=== PATIENT | female | born 1985 | race Caucasian/White ===

== ENCOUNTER → 2020-01-28 14:18 | Outpatient (CLI) | payer OTHER, SELFPAY ==
[2020-01-28 17:48] LABS: Add Manual Diff / Slide Review NO; Basophils Absolute Auto 0 /uL (0-100); Basophils Percent Auto 0.4 % (0-2); Eosinophils Absolute Auto 100 /uL (0-450); Eosinophils Percent Auto 1.5 % (2-4); Hematocrit 32.1 % (36-46); Hemoglobin 11.4 g/dL (12.0-16.0); Lymphocytes Absolute Auto 1800 /uL (1100-4500); Mean Corpuscular HGB Conc 35.5 % (30-36); Mean Corpuscular Hemoglobin 31.7 PG (26-34); Mean Corpuscular Volume 89.2 fL (80-100); Monocytes Absolute Auto 500 /uL (0-900); Monocytes Percent Auto 5.1 % (3-14); Neutrophils Absolute Auto 6700 /uL (1500-7000); Platelet Count 208 X10^3/uL (150-400); White Blood Cell Count 9.2 X10^3/uL (4.5-11.0)
[2020-01-28 18:31] LABS: Appearance Urine UA CLEAR; Bilirubin Urine UA NEGATIVE (NEGATIVE); Color Urine UA YELLOW; Glucose Urine UA NEGATIVE (Negative); Ketones Urine UA TRACE (NEGATIVE); Leukocyte Esterase Urine UA NEGATIVE (NEGATIVE); Nitrite Urine UA NEGATIVE (Negative); Occult Blood Urine UA NEGATIVE (Negative); Protein Urine UA NEGATIVE (Negative); Specific Gravity Urine UA >=1.030 (1.000-1.035); Urobilinogen Urine UA 0.2 E.U./dL (0.2)
[2020-01-28 19:29] LABS: HIV 1 & 2 Ab/Ag 4th Gen Combo NEGATIVE (NEGATIVE); Hep C Virus Ab w/Reflex Quant NEGATIVE s/c (NEGATIVE); Hepatitis B Surface Antigen NEGATIVE s/c (NEGATIVE); Rubella Antibody IgG 11.5 IU/mL (>15)
[2020-01-29 05:56] LABS: Varicella IgG Antibody 2167 index (Immune >165)
[2020-01-30 06:08] LABS: RPR Screen Non Reactive (Non Reactive)
== END ==
PROVIDERS: PCP Registered Nurse Diabetes Educator; Referring Provider Obstetrics & Gynecology; Visit Provider Obstetrics & Gynecology
DX: Z34.81 Encounter for supervision of other normal pregnancy, first trimester (principal); Z36.0 Encounter for antenatal screening for chromosomal anomalies; Z13.79 Encounter for other screening for genetic and chromosomal anomalies
CPT/HCPCS: 36415; 80055; 81003; 86787; 86803; 86850; 86900; 86901; 87389

== ENCOUNTER → 2020-03-12 16:06 | Outpatient (CLI) | payer OTHER, SELFPAY ==
[2020-03-12 21:05] LABS: Urine N gonorrhoeae NOT DETECTED
[2020-03-12 21:16] LABS: Urine Chlamydia NOT DETECTED
[2020-03-14 20:07] LABS: AFP Value 50.1 ng/mL (.); Gest Age on Col Date 17.4 weeks (.); Insulin Dep Diabetes No (.); OSBR Risk 1IN 5251 (.); Results Report (.); Test Results *Screen Negative* (.)
== END ==
PROVIDERS: PCP Registered Nurse Diabetes Educator; Referring Provider Obstetrics & Gynecology; Visit Provider Obstetrics & Gynecology
DX: Z34.82 Encounter for supervision of other normal pregnancy, second trimester (principal); Z3A.17 17 weeks gestation of pregnancy
CPT/HCPCS: 36415; 82105; 87491; 87591

== ENCOUNTER → 2020-03-30 07:12 | Outpatient (CLI) | payer OTHER, SELFPAY ==
--- NOTE | 2020-03-30 07:15 | DI.US.S_ITS ---
PROCEDURE: US OB >= 14 WEEKS FETUS INDICATIONS: ANATOMY OUTSIDE/PRIOR DATING DATA: Last menstrual period (LMP): 11/11/19. LMP-based estimated date of delivery (SEBASTIAN): 08/17/20 . First dating scan (date and location): 01/16/20, by Dr. Koch . Estimated date of delivery (SEBASTIAN) from first dating scan: 08/16/20 . TECHNIQUE: Real-time scanning was performed of the fetus, with image documentation and biometric measurements. Endovaginal scanning: Not needed. COMPARISON: None. FINDINGS: General: A single living intrauterine gestation is present. Presentation: Transverse head right. Placenta: Placental position is posterior fundal , without previa. Amniotic fluid index: 16.2 cm, normal range is 5-24 cm. heart rate: 144 beats per minute. Maternal cervical canal: 4.1 cm long. Normal lower limit is 2.5 cm. biometrics: Biparietal diameter: 4.9 cm, 20 weeks 6 days Head circumference: 18.3 cm, 20 weeks 4 days Abdominal circumference: 15.8 cm, 20 weeks 6 days Femur length: 3.3 cm, 20 weeks 3 days Estimated gestational age from initial scan: 20 weeks 1 day Composite gestational age from present scan: 20 weeks 5 days Estimated weight and percentile: 370 g, 76th percentile Measurement variability for biometric dating: +/- 7 days from 14 weeks to 15 weeks 6 days gestation, +/- 10 days from 16 weeks to 21 weeks 6 days gestation, +/- 2 weeks from 22 weeks to 27 weeks 6 days gestation, +/- 3 weeks for 28 weeks gestation or later. weight reference: 4500 g or EFW >90/95% is considered macrosomia or large for gestational age. EFW <10% is small for gestational age. EFW 5% or less is considered intra-uterine growth restriction. Anatomic survey: Neuro: Ventricles are non-dilated at less than 10 mm. Cisterna magna is normal at 3-11 mm. Cerebellum is normal in size and morphology. Nuchal skin fold: Normal at less than 6 mm between 14-21 weeks gestational age. Face: Nose and lips, facial profile are normal. Spine: No evidence for spina bifida. Heart: 4-chambered heart is present, with normal ventricular outflow tracts. Diaphragm: Diaphragm is intact. Stomach: Left-sided stomach is present. Kidneys: No hydronephrosis. Normal is less than 5 mm in 2nd trimester, less than 7 mm in 3rd trimester. Cord: 3-vessel cord has orthotopic insertion. Bladder: Normal in size. Extremities: All 4 extremities identified. IMPRESSION: Appropriate interval growth, no anomaly, the delivery DA is projected to be centered on 08/16/20. Current positioning is transverse, head to the maternal right. Dictated by: Uri Costello M.D. on 03/30/2020 at 13:08 Approved by: Uri Costello M.D. on 03/30/2020 at 13:27
== END ==
PROVIDERS: PCP Registered Nurse Diabetes Educator; Referring Provider Obstetrics & Gynecology; Visit Provider Obstetrics & Gynecology
DX: Z34.82 Encounter for supervision of other normal pregnancy, second trimester (principal); Z3A.20 20 weeks gestation of pregnancy
CPT/HCPCS: 76811

== ENCOUNTER → 2020-05-13 08:26 | Outpatient (CLI) | payer OTHER, SELFPAY ==
[2020-05-13 09:59] LABS: Hematocrit 30.2 % (36-46); Hemoglobin 10.5 g/dL (12.0-16.0)
[2020-05-13 10:09] LABS: GTT (PREG) 1 Hour PP 50gm Dose 104 mg/dL (76-139)
== END ==
PROVIDERS: PCP Registered Nurse Diabetes Educator; Referring Provider Obstetrics & Gynecology; Visit Provider Obstetrics & Gynecology
DX: Z34.82 Encounter for supervision of other normal pregnancy, second trimester (principal); Z3A.26 26 weeks gestation of pregnancy
CPT/HCPCS: 36415; 82950; 85014; 85018

== ENCOUNTER → 2020-07-13 11:27 | Outpatient (CLI) | payer OTHER, SELFPAY ==
[2020-07-14 10:11] LABS: Strep Grp B PCR NEG for Grp B Strep
== END ==
PROVIDERS: PCP Registered Nurse Diabetes Educator; Visit Provider Obstetrics & Gynecology
DX: Z34.83 Encounter for supervision of other normal pregnancy, third trimester (principal); Z3A.35 35 weeks gestation of pregnancy
CPT/HCPCS: 87653

== ENCOUNTER → 2020-08-04 11:09 | Outpatient (CLI) | payer OTHER, SELFPAY ==
[2020-08-05 09:05] LABS: Bile Acids 8.2 umol/L (0.0-10.0)
[2020-08-09 11:15] LABS: COVID19 -Nasal RAPID Negative (Negative)
== END ==
PROVIDERS: PCP Registered Nurse Diabetes Educator; Referring Provider Obstetrics & Gynecology; Visit Provider Obstetrics & Gynecology
DX: L29.9 Pruritus, unspecified (principal); Z34.90 Encounter for supervision of normal pregnancy, unspecified, unspecified trimester
CPT/HCPCS: 36415; 82239; 87635

== ENCOUNTER 2020-08-10 07:15 | Inpatient (IN) | payer OTHER, SELFPAY ==
[2020-08-10] MEDS: LACTATED RINGERS 1,000 ML 100 ML IV ×2 (08:25→13:06)
[2020-08-10] MEDS: OXYTOCIN PREMIX 30 UNIT/500 ML PLAST..BAG IV (08:39)
[2020-08-10 08:58] LABS: Add Manual Diff / Slide Review NO; Basophils Absolute Auto 0 /uL (0-100); Basophils Percent Auto 0.4 % (0-2); Eosinophils Absolute Auto 100 /uL (0-450); Eosinophils Percent Auto 0.7 % (2-4); Hematocrit 33.7 % (36-46); Hemoglobin 11.8 g/dL (12.0-16.0); Lymphocytes Absolute Auto 1600 /uL (1100-4500); Lymphocytes Percent Auto 12.8 % (25-40); Mean Corpuscular HGB Conc 35.1 % (30-36); Mean Corpuscular Hemoglobin 33.1 PG (26-34); Mean Corpuscular Volume 94.2 fL (80-100); Monocytes Absolute Auto 800 /uL (0-900); Monocytes Percent Auto 6.5 % (3-14); Neutrophils Absolute Auto 9900 /uL (1500-7000); Neutrophils Percent Auto 79.6 % (50-75); Platelet Count 183 X10^3/uL (150-400); Red Blood Cell Count 3.58 X10^6/uL (4.0-5.2); Red Cell Distribution Width 12.8 % (11.6-14.8); White Blood Cell Count 12.4 X10^3/uL (4.5-11.0)
[2020-08-10 10:00] VITALS: BP 118/79
[2020-08-10] MEDS: FENT 2MCG/ML BUPIV 0.125% EPI 200 MCG/100 ML PLAST..BAG 10 MCG EPIDURAL (13:40)
--- NOTE | 2020-08-10 20:21 | PM.OBHP.1 ---
OB HPI Date/Time Date of admission: 08/10/20 Date Patient Seen: 08/10/20 Time Patient Seen: 07:50 History of Present Condition Chief complaint: LABOR OBS/INDUCTION : 2 Para: 1 Estimated Date of Delivery: 08/17/20 Estimated Gestational Age (weeks): 39 Narrative: Diana Womack is a 34 year old female who presented for induction of labor at 39 weeks gestation Indications Indication for induction OB: maternal discomfort History of Present care: initiated at week # (9), number of visits (11) and pounds weight gain (34) Dating criteria: LMP confirmed by 1st trimester US Ultrasounds: normal 1st trimester US and normal mid trimester US Obstetrical complications: none Medical complications: none Preadmission Labs Blood type: O (+) positive -: Antibody screen: negative, GBS status: negative, HBsAG: negative, HIV: negative and RPR/VDLR: negative -: Chlamydia screen: not detected and Gonorrhea screen: not detected -: Rubella: not immune and Varicella: immune HCT: 33.7 HCAB: negative PAP: Normal Cell-free DNA: Normal female, AFP normal 1 hr GTT: 104 Prior (ies) History: 1 in [facility] Evaluation Evaluation Baseline heart rate: 135 Variability: Moderate (11-25) monitor accelerations: Present Monitor Decelerations: Absent Status: Category l Cervical dilation (cm): 3 Cervical effacement (%): 85 station: -1 Laboratory results: Laboratory Tests 08/10/20 08/10/20 08:25 08:25 WBC 12.4 H RBC 3.58 L Hgb 11.8 L Hct 33.7 L MCV 94.2 MCH 33.1 MCHC 35.1 RDW 12.8 Plt Count 183 Neut % (Auto) 79.6 H Lymph % (Auto) 12.8 L [place] % (Auto) 6.5 Eos % (Auto) 0.7 L Baso % (Auto) 0.4 Neut # (Auto) 9900 H Lymph # (Auto) 1600 [place] # (Auto) 800 Eos # (Auto) 100 Baso # (Auto) 0 Blood Type O Positive Antibody Screen Negative [facility] Medical History (Updated 08/05/20 @ 09:01 by Josey Koch MD) Anemia affecting first (~2017) Hand fracture, left (~2003) Family History (Updated 01/10/20 @ 13:21 by Pricilla Mcneil RN) Mother No problems noted. Father Hypertension Otosclerosis Grandmother Alzheimer's dementia Grandfather Cancer Grandmother Diabetes mellitus Grandfather Aortic aneurysm Brother No problems noted. Social History marital status: details: Kranthi Zuluaga number of children: 1 household members: spouse and children lives independently: No caregiver/support person: No housing: house pets and animals: No education level: other (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, [employer].) current occupational exposures/hazards: No special karthik needs: No travel history: recent (Returned from living in [facility] September 24, 2019.) leisure activities: exercise (walking, some running, hiking, yoga.) seatbelt use: always Smoking Status: Never smoker second hand exposure: No alcohol intake: former (Pre-, occasional, 1 glass wine 2-3x/week.) substance use type: does not use during the past year weight has: remained stable Meds Home Medications and Allergies Home Medications Medication Instructions Recorded Confirmed Type prenat.vits,alejandra,hyu-qsax-qsfak 1 tab PO DAILY 01/16/20 08/05/20 History Double Electric breast Pump and #1 ea 07/29/20 08/05/20 Rx Supplies Allergies Allergy/AdvReac Type Severity Reaction Status Date / Time No Known Drug Allergies Allergy Verified 08/05/20 08:27 Exam Vital Signs (past 8 hours): Generally: A well-developed, well-nourished female, no acute distress Lungs: Clear to auscultation bilaterally Cardiovascular: Regular rate and rhythm Fundal height: 40 cm Estimated weight: 8 lb Extremities: No edema, 1+ DTRs Objective Labs Result Diagrams: 08/10/20 08:25 Labs: Laboratory Results - last 24 hr 08/10/20 08/10/20 08:25 08:25 WBC 12.4 H RBC 3.58 L Hgb 11.8 L Hct 33.7 L MCV 94.2 MCH 33.1 MCHC 35.1 RDW 12.8 Plt Count 183 Neut % (Auto) 79.6 H Lymph % (Auto) 12.8 L [place] % (Auto) 6.5 Eos % (Auto) 0.7 L Baso % (Auto) 0.4 Neut # (Auto) 9900 H Lymph # (Auto) 1600 [place] # (Auto) 800 Eos # (Auto) 100 Baso # (Auto) 0 Blood Type O Positive Antibody Screen Negative Assessment and Plan Assessment and Plan Assessment and Plan narrative: Assessment: 34-year-old 2 para 1 at 39 weeks gestation for induction of labor Plan: Pitocin per protocol 2 Artificial rupture of membranes when able Epidural as necessary Expected management to spontaneous vaginal delivery Time Spent with Patient Total time spent with greater than 50% in coordination of care (as documented) at patient's floor/unit and/or counseling patient:: less than 15 minutes
--- NOTE | 2020-08-10 20:26 | PM.OBPNLAB ---
Date/Time Date Patient Seen: 08/10/20 Time Patient Seen: 12:30 Pain Control Pain control: tolerating well Pelvic Exam Dilation (cm): 4 Effacement (%): 85 station: -1 Amniotic membrane status: Intact Contractions Monitor mode: External Pitocin rate (mU/min): 12 Contraction frequency (min): 3 Contraction duration (min): 1 Contraction pattern: Regular Contraction intensity: Moderate Status status: Category l Heart Rate Baseline: 135 Monitor Accelerations: Present Monitor Decelerations: Absent Monitor Variability: Moderate Assessment and Plan Assessment: induction ongoing Comments: AROM with copious clear amniotic fluid
--- NOTE | 2020-08-10 20:27 | PM.OBPNLAB ---
Date/Time Date Patient Seen: 08/10/20 Time Patient Seen: 15:15 Pain Control Pain control: epidural Pelvic Exam Dilation (cm): 7 Effacement (%): 100 station: 0 Amniotic membrane status: Ruptured Contractions Monitor mode: External Pitocin rate (mU/min): 9 Contraction frequency (min): 3 Contraction duration (min): 1 Contraction pattern: Regular Contraction intensity: Strong/Firm Status status: Category l Heart Rate Baseline: 130 Monitor Accelerations: Present Monitor Decelerations: Absent Monitor Variability: Moderate Assessment and Plan Assessment: active labor Plan: continuous present management
--- NOTE | 2020-08-10 20:28 | P.PCNOB_ITS ---
Events: Labor Induction Labor & Delivery Delivery date: 08/10/20 Cervical ripening method: none Induction method: per pitocin protocol Delivery augmentation: rupture of membranes Delivery monitor: external FHT and external uterine Route of delivery: Episiotomy description: None L&D Laceration Description: Perineal - 2nd Degree and Vaginal - 2nd Degree Delivery repair: vicryl and chromic Estimated blood loss (mL): 150 Anesthesia Type: Epidural Narrative: Patient complete and pushed for 90 minutes. At 194, a live female delivered spontaneously over an intact perineum in the ROSI presentation. The remainder of the body delivered with a little bit of difficulty. The was placed on mom's abdomen. The cord was double clamped and cut. Cord bloods were obtained. The placenta delivered intact with a three-vessel cord at 1950. Pitocin was given in the IV fluids. The fundus was massaged to firm. The vagina and perineum were inspected and there was a second-degree vaginal/perinea l laceration. This was repaired in the usual fashion using 2 0 chromic and 2 0 Vicryl. Hemostasis was achieved. Apgars 8 at 1 minute and 9 at 5 minutes. Epidural analgesia. . Estimated blood loss 150 cc. Mom and infant stable to recovery. Baby 1: gender: Female Presentation: vertex Position: Left Occiput Anterior Placenta delivery description: Spontaneous Cord Vessel Description: 3 Vessels score (1 min): 8 score (5 min): 9 Plan for aftercare: Routine care
[2020-08-11] MEDS: DERMOPLAST SPRAY 20% 60 ML 1 SPRAY TOP (02:36)
[2020-08-11] MEDS: LANOLIN OINT 7 GM 1 APPLIC TOP (02:37)
[2020-08-11 04:56] LABS: Hematocrit 32.7 % (36-46); Hemoglobin 11.3 g/dL (12.0-16.0)
[2020-08-11] MEDS: ACETAMINOPHEN 325 MG TABLET 650 MG PO ×2 (06:58→13:20)
[2020-08-11] MEDS: IBUPROFEN 600 MG TABLET PO ×2 (06:59→13:20)
[2020-08-11] MEDS: PRENATAL VIT,CALC/IRON/FOLIC 1 TABLET 1 TAB PO (13:20)
[2020-08-11] MEDS: DOCUSATE 100 MG CAPSULE PO (13:21)
[2020-08-11 17:27] VITALS: BP 121/85; PULSE 58; RESP 16; TEMP 36.9
--- NOTE | 2020-08-11 17:27 | P.DS_ITS ---
Discharge Providers Provider Date of admission: 08/10/20 07:15 Discharge Date: 08/11/20 Primary care physician: DENZEL Mccoy Consults: 08/11/20 20:13 Consult to Dental Technician Instructor Routine Comment: Discharge provider: Josey Koch MD Summary Hospital Course Date Patient Seen: 08/11/20 Time Patient Seen: 12:57 Diagnoses: 39 weeks gestation Induction of labor Epidural analgesia Artificial rupture of membranes Spontaneous vaginal delivery Second-degree laceration repair Hospital Course: Patient is a 34-year-old 2 para 2 who presented for induction of labor on August 10, 2020. Pitocin was started. Artificial rupture of membranes was performed and then epidural received for pain management. She progressed to complete dilation and had a spontaneous vaginal delivery without complication. She had a second-degree laceration that was repaired. Her course was unremarkable. is going well. Bleeding is tapering. Pain is well controlled. Peripartum Data Delivery Method: Natural Vaginal Laceration Description: Perineal - 2nd Degree and Vaginal - 2nd Degree Episiotomy description: None Procedures: Pitocin induction of labor Artificial rupture of membranes Epidural analgesia Spontaneous vaginal delivery Second-degree laceration repair complications: none [place] 1: Gender: Female Disposition of : home Status at Discharge Cognitive/behavioral status at discharge: oriented Functional status at discharge: independent ambulation Overall status at discharge: patient is progressing back to baseline Time Spent with Patient Time attestation: Total time spent providing and/or coordinating discharge services: Time spent: Less than 30 minutes Objective Labs Result Diagrams: 08/11/20 04:30 Labs: Laboratory Results - last 24 hr 08/11/20 04:30 Hgb 11.3 L Hct 32.7 L Exam Vital Signs (past 8 hours): Generally: Patient is sitting up in bed, holding , no acute distress Fundus: Firm at U Extremities: No edema, negative Homans Discharge Plan Discharge Plan Patient Disposition: Home Provider Discharge Comment: Call with fever, chills, or bleeding vaginally more than a pad in an hour Ibuprofen 600 mg every 6 hours as needed for cramping Tylenol 650 mg every 6 hours as needed Discharge orders & Medications Prescriptions: Continued prenat.vits,alejandra,[id number] Tablet 1 tab PO DAILY RF: 0 No Action (DME) Double Electric breast Pump and Supplies See Rx Instructions .ROUTE .MEDSUPPLY Qty: 1 RF: 0 Follow up/Referrals: Josey Koch MD [Physician] - 6 Weeks (Your six week follow up appointment with Dr. Koch is scheduled for September 21 @11:30am.) Diet/Activity/Treatments Diet: Regular Activity: Nothing in the vagina Skin/Wound/Dressing Care Report to your healthcare provider any signs of infection, such as:: chills, fever, increased pain and unusual drainage Visit Report/Discharge Packet Instructions: DI for Labor and Delivery, Vaginal Stand Alone Forms: Discharge: Care Discharge Data Primary Care Provider: Shayne Martinez
[2020-08-11] MEDS: MEASLES,MUMPS,RUBELLA VACC/PF 0.5 ML VIAL SUBCUT (18:16)
== END 2020-08-11 19:00 | disposition home or self-care (01) | DRG 807 ==
PROVIDERS: Admitting Provider Obstetrics & Gynecology; PCP Registered Nurse Diabetes Educator; Referring Provider Obstetrics & Gynecology; Visit Provider Obstetrics & Gynecology
DX: O70.1 Second degree perineal laceration during delivery (principal); Z37.0 Single live birth; Z3A.39 39 weeks gestation of pregnancy
CPT/HCPCS: 01967; 36415; 59050; 59400; 85014; 85018; 85025; 86850; 86900; 86901; G0379; J2590

== ENCOUNTER → 2022-03-07 09:53 | Outpatient (CLI) | payer OTHER, SELFPAY ==
[2022-03-07 11:41] LABS: Influenza A - CEPHEID Flu A POSITIVE (NEGATIVE); Influenza B - CEPHEID Flu B NEGATIVE (NEGATIVE); Respiratory Syncytial Virus Negative (Negative)
[2022-03-07 11:44] LABS: COVID-19 CEPHEID 4-PLEX PCR Negative (Negative)
== END ==
PROVIDERS: PCP Registered Nurse Diabetes Educator; Visit Provider Physician Assistant Medical
DX: R05.9 Cough, unspecified (principal)
CPT/HCPCS: 0241U

== ENCOUNTER → 2023-01-30 09:17 | Outpatient (CLI) | payer OTHER, SELFPAY ==
--- NOTE | 2023-01-30 09:18 | DI.MG.S_ITS ---
BILATERAL DIGITAL DIAGNOSTIC MAMMOGRAM 3D/2D: 01/30/2023 CLINICAL: Right breast lump. Baseline. No prior exams were available for comparison. Both breasts are extremely dense, which lowers the sensitivity of mammography (category d />75% glandular tissue). No significant masses, calcifications, or other findings are seen in either breast. IMPRESSION: INCOMPLETE: NEEDS ADDITIONAL IMAGING EVALUATION No mammographic evidence of malignancy. A targeted ultrasound is recommended and will immediately follow. Based on the Tyrer Cuzick model (a risk assessment model) the patient's lifetime risk is 14.2% and her 10 year risk is 1.2%. According to the ACR, ACS, and NCCN guidelines, an annual breast MRI exam along with mammogram is recommended if the patient's lifetime risk is 20% or greater. This exam was interpreted at Station ID: [id number]. NOTE: For mammograms, a report in lay terms will be sent to the patient. Approximately 15% of breast malignancies will not be visualized mammographically. In the management of a palpable breast mass, a negative mammogram must not discourage biopsy of a clinically suspicious lesion. Electronically Signed By: Andriy Hayward M.D. slc/:01/30/2023 09:57:52 ACR BI-RADS Category 0: Incomplete [id number]
--- NOTE | 2023-01-30 09:18 | DI.US.S_ITS ---
LIMITED ULTRASOUND OF RIGHT BREAST: 01/30/2023 CLINICAL: Palpable right breast lump. Comparison is made to exam dated: 01/30/2023 mammogram - [facility]. Real-time ultrasound of the right breast 10-11 o'clock region was performed. No significant abnormalities were seen sonographically in the right breast. IMPRESSION: NEGATIVE There is no sonographic evidence of malignancy. Exam findings were conveyed to the patient. Patient is advised to monitor for significant change. Clinical follow-up as needed. A 4 year screening mammogram is recommended. This exam was interpreted at Station ID: [id number]. Electronically Signed By: Andriy Hayward M.D. slc/:01/30/2023 10:07:01 letter sent: Normal Exam Ultrasound BI-RADS: 1 Negative
--- NOTE | 2023-01-30 09:18 | DI.US.S_ITS ---
PROCEDURE: US THYROID INDICATIONS: RIGHT THYROID NODULE TECHNIQUE: Real-time scanning was performed of the thyroid gland, with image documentation. COMPARISON: None. FINDINGS: Right: Thyroid lobe measures 4.8 x 1.7 x 1.4 cm, and is homogeneous in echotexture. Left: Thyroid lobe measures 4.8 x 1.6 x 1.3 cm, and is homogenous in echotexture. Isthmus: 2.6 mm thick. IMPRESSION: Unremarkable exam. Dictated by: Sandra Shearer M.D. on 01/30/2023 at 15:31 Approved by: Sandra Shearer M.D. on 01/30/2023 at 15:31
== END ==
PROVIDERS: PCP Registered Nurse Diabetes Educator; Referring Provider Registered Nurse Diabetes Educator; Visit Provider Registered Nurse Diabetes Educator
DX: N63.10 Unspecified lump in the right breast, unspecified quadrant (principal); E04.1 Nontoxic single thyroid nodule; R92.2 Inconclusive mammogram
CPT/HCPCS: 76536; 76642; 77066; G0279

== ENCOUNTER → 2023-02-27 09:02 | Outpatient (CLI) | payer OTHER, SELFPAY ==
[2023-02-27 10:03] LABS: Hematocrit 35.8 % (36-46); Hemoglobin 12.7 g/dL (12.0-16.0); Mean Corpuscular HGB Conc 35.5 % (30-36); Mean Corpuscular Hemoglobin 30.7 PG (26-34); Mean Corpuscular Volume 86.6 fL (80-100); Platelet Count 259 X10^3/uL (150-400); Red Blood Cell Count 4.14 X10^6/uL (4.0-5.2); Red Cell Distribution Width 12.8 % (11.6-14.8); White Blood Cell Count 5.3 X10^3/uL (4.5-11.0)
[2023-02-27 10:26] LABS: Alanine Aminotransferase 14 IU/L (<35); Albumin 4.4 g/dL (3.5-5.0); Albumin Globulin Ratio 1.5 (1.0-2.8); Alkaline Phosphatase 38 U/L (38-126); Aspartate Aminotransferase 19 IU/L (14-36); BUN Creatinine Ratio 12.6 (6-22); Blood Urea Nitrogen 11 mg/dL (7-17); Calcium 9.6 mg/dL (8.4-10.2); Carbon Dioxide 26 mmol/L (22-32); Chloride 105 mmol/L (98-107); Estimated Glomerular Filt Rate > 60 mL/min (>60); Globulin 2.9 g/dL (1.7-4.1); Glucose 87 mg/dL (70-100); HEMOLYSIS < 15 (0-50); Potassium 4.1 mmol/L (3.4-5.1); Sodium 137 mmol/L (137-145); Total Protein 7.3 g/dL (6.3-8.2)
[2023-02-27 10:56] LABS: Thyroid Stimulating Hormone 1.52 uIU/mL (0.47-4.68)
== END ==
PROVIDERS: PCP Registered Nurse Diabetes Educator; Referring Provider Registered Nurse Diabetes Educator; Visit Provider Registered Nurse Diabetes Educator
DX: Z01.419 Encounter for gynecological examination (general) (routine) without abnormal findings (principal); E04.1 Nontoxic single thyroid nodule
CPT/HCPCS: 36415; 80053; 84439; 84443; 85027